=== PATIENT | female | born 1950 | race Caucasian/White ===

== ENCOUNTER 2023-09-03 16:41 | Inpatient (IN) ==
[2023-09-03 17:13] LABS: ABS Basophils 0.1 10^3/uL (0.0-0.1); ABS Lymphocytes 0.9 10^3/uL (1.0-4.8); ABS Monocytes 0.8 10^3/uL (0.0-0.9); ABS Neutrophils 8.2 10^3/uL (1.5-7.6); ABS Nucleated RBC 0.01 10^3/ul; Eosinophil % 0.4 %; Hematocrit 44.9 % (35-45); Hemoglobin 15.1 g/dL (11.5-14.3); Lymphocyte % 9.4 %; Mean Corpuscular Hemoglobin 31.1 pg (27-33); Mean Corpuscular Hgb Conc 33.7 g/dL (31-36); Mean Corpuscular Volume 92.2 fL (80-97); Mean Platelet Volume 7.4 fL (7.5-11.2); Nucleated Red Blood Cells % 0.1 %/100WBC (0.0-0.8); Platelet Count 299 10^3/uL (150-450); Red Blood Count 4.86 10^6/uL (3.63-4.92); Red Cell Distribution Width 14.4 % (12-17)
[2023-09-03 18:19] LABS: INR 1.1 (0.83-1.13)
[2023-09-03 18:26] LABS: Albumin 3.7 g/dL (3.2-5.2); Albumin/Globulin Ratio 1.1 (1-3); Calcium 9.7 mg/dL (8.6-10.3); Creatinine, Serum 0.61 mg/dL (0.51-0.95); Globulin 3.4 g/dL (2-4); Potassium 3.8 mmol/L (3.5-5.0); Total Bilirubin 0.5 mg/dL (0.2-1.0); Total Protein 7.1 g/dL (6.4-8.9); eGFR CKD-EPI 93.2 (>60)
[2023-09-03 19:21] LABS: C Reactive Protein 48.17 mg/L (<8.01); Magnesium 1.9 mg/dL (1.9-2.7)
[2023-09-03 19:23] LABS: High Sensitivity Troponin 1 Hr 5 pg/mL (<15)
[2023-09-04] MEDS ORDERED: Iohexol 350 (CONTRAST) 500 ML MDV IV ONE (00:04)
[2023-09-04] MEDS ORDERED: Enoxaparin 40 MG/0.4 ML SYR SUBCUT SCH (02:00)
[2023-09-04 07:30] LABS: ABS Basophils 0.1 10^3/uL (0.0-0.1); ABS Eosinophils 0.1 10^3/uL (0.0-0.5); ABS Neutrophils 5.7 10^3/uL (1.5-7.6); ABS Nucleated RBC 0.01 10^3/ul; Eosinophil % 1.6 %; Hematocrit 41.5 % (35-45); Hemoglobin 13.9 g/dL (11.5-14.3); Lymphocyte % 22.3 %; Mean Corpuscular Hemoglobin 30.6 pg (27-33); Mean Corpuscular Hgb Conc 33.6 g/dL (31-36); Mean Corpuscular Volume 91.2 fL (80-97); Mean Platelet Volume 7.6 fL (7.5-11.2); Nucleated Red Blood Cells % 0.1 %/100WBC (0.0-0.8); Platelet Count 277 10^3/uL (150-450); Red Blood Count 4.55 10^6/uL (3.63-4.92); White Blood Count 8.8 10^3/uL (3.8-11.8)
[2023-09-04 07:43] LABS: Calcium 9.5 mg/dL (8.6-10.3); Creatinine, Serum 0.67 mg/dL (0.51-0.95); Potassium 4.3 mmol/L (3.5-5.0); eGFR CKD-EPI 91.1 (>60)
[2023-09-04] MEDS: cefTRIAXone 1 gm/50 mL D5W 1 GM/50 ML BAG IV SCH (07:44)
[2023-09-04 08:09] LABS: TSH Ultra Thyroid Stim Horm 3.8 mcIU/mL (0.34-5.60)
[2023-09-04 18:02] LABS: Total Protein 6.4 g/dL (6.4-8.9)
[2023-09-04 20:09] LABS: Body Fluid Total Nucleated 97 /mcL
[2023-09-04] MEDS: Morphine 2 MG/ML SYRINGE IV PRN (20:10)
[2023-09-04 23:54] LABS: Body Fluid Appearance Clear; Body Fluid Color Yellow; Body Fluid Source Pleural Fluid
[2023-09-05 00:01] LABS: Body Fluid Mono 16 %; Body Fluid Total Cells Counted 200
[2023-09-05] MEDS: Morphine 2 MG/ML SYRINGE IV PRN ×4 (00:12→20:46)
[2023-09-05] MEDS ORDERED: Ondansetron 4 mg VIAL 2 MG/ML 2 ml VIAL IV ONE (05:33)
[2023-09-05] MEDS: cefTRIAXone 1 gm/50 mL D5W 1 GM/50 ML BAG IV SCH (05:49)
[2023-09-05 07:01] LABS: ABS Basophils 0.1 10^3/uL (0.0-0.1); ABS Eosinophils 0.1 10^3/uL (0.0-0.5); ABS Lymphocytes 1.5 10^3/uL (1.0-4.8); ABS Monocytes 0.7 10^3/uL (0.0-0.9); ABS Neutrophils 7.5 10^3/uL (1.5-7.6); Eosinophil % 1.4 %; Hematocrit 41.3 % (35-45); Lymphocyte % 15.2 %; Mean Corpuscular Hemoglobin 30.9 pg (27-33); Mean Corpuscular Volume 90.9 fL (80-97); Mean Platelet Volume 7.7 fL (7.5-11.2); Platelet Count 284 10^3/uL (150-450); Red Blood Count 4.54 10^6/uL (3.63-4.92); Red Cell Distribution Width 13.8 % (12-17)
[2023-09-05 07:53] LABS: Calcium 9.2 mg/dL (8.6-10.3); Creatinine, Serum 0.52 mg/dL (0.51-0.95); Magnesium 1.9 mg/dL (1.9-2.7); Potassium 3.7 mmol/L (3.5-5.0); eGFR CKD-EPI 96.8 (>60)
[2023-09-05] MEDS ORDERED: Ondansetron 4 mg VIAL 2 MG/ML 2 ml VIAL IV PRN (13:22)
[2023-09-05] MEDS ORDERED: Iohexol 350 (CONTRAST) 500 ML MDV IV ONE (14:24)
[2023-09-05] MEDS: Senna TAB 8.6 mg TAB PO PRN (20:36)
[2023-09-05] MEDS: Magnesium Hydroxide LIQ 30 ML UDC PO PRN (20:36)
[2023-09-06] MEDS: cefTRIAXone 1 gm/50 mL D5W 1 GM/50 ML BAG IV SCH (05:46)
[2023-09-06 07:05] LABS: Calcium 9.1 mg/dL (8.6-10.3); Creatinine, Serum 0.59 mg/dL (0.51-0.95); Potassium 4.3 mmol/L (3.5-5.0); eGFR CKD-EPI 93.9 (>60)
[2023-09-06] MEDS: Magnesium Hydroxide LIQ 30 ML UDC PO PRN ×2 (09:29→19:48)
[2023-09-06 15:27] LABS: Lactate Dehydrogenase, BF 162 U/L
[2023-09-06] MEDS: Senna TAB 8.6 mg TAB PO PRN (19:48)
[2023-09-06] MEDS: Morphine 2 MG/ML SYRINGE IV PRN (20:00)
[2023-09-07] MEDS: Morphine 2 MG/ML SYRINGE IV PRN (02:18)
[2023-09-07] MEDS: cefTRIAXone 1 gm/50 mL D5W 1 GM/50 ML BAG IV SCH (04:47)
[2023-09-07 10:20] VITALS: BP 137/68
[2023-09-07 12:21] LABS: Fluid Type, Protein, Total Pleural Fluid; Glucose, BF 118 mg/dL; Total Protein, BF 3.6 g/dL
== END 2023-09-07 13:40 | disposition home or self-care (01) | DRG 189 ==
LOC: EDHOLD 16:41 → ED 16:41 → SUATTDRO 09-04 01:22 → MED 09-04 08:31 → SUATTDRO 09-04 13:01
PROVIDERS: ADMIT Student in an Organized Health Care Education/Training Program; ATTEND Internal Medicine